=== PATIENT | male | born 1970 | race Caucasian/White ===

== ENCOUNTER 2017-07-22 16:26 | Emergency (ER) | payer OTHER ==
[~2017-07-22] VITALS: Ht 177.8 cm; Wt 111.1 kg
[~2017-07-22 16:26] MED LIST: ADDERALL 10 MG10 MG; CHERATUSSIN AC118 ML PO; DOXYCYCLINE HY100 MG PO; IBUPROFEN600 MG PO; LAMOTRIGINE100 MG; NORCO 5-325 TA1 EACH PO; OMEPRAZOLE20 M1; PREDNISONE20 MG PO; PROVENTIL HFA6.7 GM INH; TRAMADOL HCL50 MG PO
== END 2017-07-22 19:50 | disposition left against medical advice (07) ==
LOC: ED 16:26
DX: M25.571 Pain in right ankle and joints of right foot (principal); S99.811A Other specified injuries of right ankle, initial encounter; X50.1XXA Overexertion from prolonged static or awkward postures, initial encounter; Y93.9 Activity, unspecified; Z53.21 Procedure and treatment not carried out due to patient leaving prior to being seen by health care provider
CPT/HCPCS: 73610